=== PATIENT | female | born 1960 | race Two or more races ===

== ENCOUNTER 2019-02-17 19:52 | Emergency (ER) | payer OTHER ==
[~2019-02-17] VITALS: Ht 172.7 cm; Wt 74.8 kg
[2019-02-17 21:06] LABS: Basophils # (auto) 0.1 uL; Basophils % (auto) 0.9 % (0.0-2.0); Eosinophils # (auto) 0 uL; Eosinophils % (auto) 0.5 % (0.0-7.0); Hematocrit 42.1 % (36.0-46.0); Hemoglobin 14.7 g/dL (12.2-16.2); Lymphocytes # (auto) 2.3 uL; Lymphocytes % (auto) 29.9 % (10.0-50.0); Mean Corpuscular Hemoglobin 30.1 pg (28.0-32.0); Monocytes # (auto) 0.6 uL; Monocytes % (auto) 7.6 % (0.0-12.0); Neutrophils # (auto) 4.8 uL; Neutrophils % (auto) 61.1 % (37.0-80.0); Nucleated Red Blood Cells % 0.1 %; Platelet Count (auto) 330 10^3/uL (140-450); Red Cell Distribution Width 12.5 % (11.8-14.3); White Blood Cell 7.8 10^3/uL (4.4-10.8)
[2019-02-17 21:19] LABS: INR 0.98 (0.9-1.15); Partial Thromboplastin Time 25.6 sec (23.64-32.05)
[2019-02-17 21:22] LABS: Alanine Aminotransferase 34 U/L (13-56); Albumin 3.9 g/dL (3.4-5.0); Anion Gap 7 (5-15); Aspartate Aminotransferase 17 U/L (15-37); BUN/Creatinine Ratio 24.6; Blood Urea Nitrogen 16 mg/dL (7-18); Calcium 9.2 mg/dL (8.5-10.1); Carbon Dioxide 27 mmol/L (21-32); Chloride 107 mmol/L (98-107); GFR African American 120 mL/min; GFR Non-African American 99 mL/min; Glucose 116 mg/dL (74-106); Magnesium 2.2 mg/dL (1.6-2.6); Potassium 3.2 mmol/L (3.5-5.1); Sodium 141 mmol/L (136-145)
[2019-02-17 21:27] LABS: Alkaline Phosphatase 82 U/L (45-117); Bilirubin, Total 1.5 mg/dL (0.2-1.0); Total Protein 7.7 g/dL (6.4-8.2)
[2019-02-17] MEDS ORDERED: ONDANSETRON HCL 4 MG/2 ML VIAL IV ONE (21:30)
[2019-02-17] MEDS ORDERED: HYDROmorphone HCL 2 MG/ML VL IV ONE (21:30)
[2019-02-18] MEDS ORDERED: HYDROcodone-ACET 5/325MG TAB PO ONE (02:00)
[2019-02-18 02:06] VITALS: BP 117/72
== END 2019-02-18 02:20 | disposition home or self-care (01) ==
LOC: EDBD 19:52 → ER 19:52
DX: M25.552 Pain in left hip (principal)
CPT/HCPCS: 36415; 71045; 73502; 80053; 83735; 84484; 85025; 85610; 85730; 94761; 96374; 96375; 99284; J1170; J2405

== ENCOUNTER 2021-02-15 18:38 | Emergency (ER) | payer OTHER ==
[~2021-02-15] VITALS: Ht 162.6 cm; Wt 79.4 kg
[2021-02-15] MEDS ORDERED: ACETAMINOPHEN 325 MG TAB PO ONE (19:00)
[2021-02-15 19:03] LABS: Basophils # (auto) 0.2 10 ^3/uL (0-0.2); Basophils % (auto) 2.7 % (0.0-2.0); Eosinophils # (auto) 0.1 10 ^3/uL (0-0.8); Eosinophils % (auto) 1.9 % (0.0-7.0); Hematocrit 42.2 % (36.0-46.0); Hemoglobin 13.7 g/dL (12.2-16.2); Lymphocytes # (auto) 2.1 10 ^3/uL (0.4-5.4); Lymphocytes % (auto) 32.2 % (10.0-50.0); Mean Corpuscular Hemoglobin 28.8 pg (28.0-32.0); Mean Corpuscular Hgb Conc. 32.6 g/dL (32.0-36.0); Mean Corpuscular Volume 88.5 fL (80.0-100.0); Monocytes # (auto) 0.4 10 ^3/uL (0-1.3); Monocytes % (auto) 6.8 % (0.0-12.0); Neutrophils # (auto) 3.6 10 ^3/uL (1.6-8.6); Neutrophils % (auto) 56.4 % (37.0-80.0); Nucleated Red Blood Cells % 0.1 %; Red Blood Cells 4.77 10^6/uL (4.0-5.20); Red Cell Distribution Width 12.4 % (11.8-14.3); White Blood Cell 6.5 10^3/uL (4.4-10.8)
[2021-02-15 19:20] LABS: INR 0.99 (0.9-1.15); Partial Thromboplastin Time 24.1 sec (23.6-33.0)
[2021-02-15 19:21] LABS: Albumin 3.6 g/dL (3.4-5.0); Anion Gap 8 (5-15); Blood Urea Nitrogen 20 mg/dL (7-18); Calcium 9.5 mg/dL (8.5-10.1); Carbon Dioxide 27 mmol/L (21-32); Chloride 110 mmol/L (98-107); Glucose 157 mg/dL (74-106); Potassium 3.4 mmol/L (3.5-5.1); Sodium 145 mmol/L (136-145)
[2021-02-15 19:28] LABS: Alanine Aminotransferase 35 U/L (13-56); Alkaline Phosphatase 92 U/L (45-117); Aspartate Aminotransferase 16 U/L (15-37); Bilirubin, Total 1.2 mg/dL (0.2-1.0); GFR African American 107 mL/min; GFR Non-African American 89 mL/min; Total Protein 7.5 g/dL (6.4-8.2)
[2021-02-15 19:29] LABS: BUN/Creatinine Ratio 28.2
[2021-02-16 08:10] VITALS: BP 152/87
[2021-02-16] MEDS ORDERED: NITROGLYCERIN 0.4 MG SL TAB SL ONE (10:00)
== END 2021-02-16 07:08 | disposition short-term general hospital (02) ==
LOC: EDBD 18:38 → ER 18:40
DX: R07.2 Precordial pain (principal); R55 Syncope and collapse; I25.2 Old myocardial infarction; I25.10 Atherosclerotic heart disease of native coronary artery without angina pectoris; I10 Essential (primary) hypertension; E78.5 Hyperlipidemia, unspecified; Z20.822 Contact with and (suspected) exposure to COVID-19; Z86.73 Personal history of transient ischemic attack (TIA), and cerebral infarction without residual deficits; Z88.0 Allergy status to penicillin
CPT/HCPCS: 36415; 71045; 80053; 84484; 85025; 85610; 85730; 87426; 93005

== ENCOUNTER 2022-07-01 13:41 | Emergency (ER) | payer OTHER ==
[~2022-07-01] VITALS: Ht 167.6 cm; Wt 81.0 kg
[2022-07-01 15:24] LABS: Albumin 3.7 g/dL (3.4-5.0); Calcium 9.5 mg/dL (8.5-10.1); Potassium 3.8 mmol/L (3.5-5.1)
[2022-07-01 15:25] LABS: INR 0.97 (0.9-1.15); Partial Thromboplastin Time 25.8 sec (24.6-33.4)
[2022-07-01 15:26] LABS: BUN/Creatinine Ratio 22.2
[2022-07-01 15:27] LABS: Basophils # (auto) 0.1 10 ^3/uL (0-0.2); Basophils % (auto) 0.6 % (0.0-2.0); Eosinophils # (auto) 0.1 10 ^3/uL (0-0.8); Eosinophils % (auto) 0.8 % (0.0-7.0); Hematocrit 44.3 % (36.0-46.0); Hemoglobin 14.5 g/dL (12.2-16.2); Lymphocytes # (auto) 2.6 10 ^3/uL (0.4-5.4); Lymphocytes % (auto) 28.2 % (10.0-50.0); Mean Corpuscular Hemoglobin 28.4 pg (28.0-32.0); Mean Corpuscular Hgb Conc. 32.8 g/dL (32.0-36.0); Mean Corpuscular Volume 86.7 fL (80.0-100.0); Monocytes # (auto) 0.6 10 ^3/uL (0-1.3); Monocytes % (auto) 6.7 % (0.0-12.0); Neutrophils # (auto) 5.9 10 ^3/uL (1.6-8.6); Neutrophils % (auto) 63.7 % (37.0-80.0); Nucleated Red Blood Cells % 0.1 %; Red Blood Cells 5.11 10^6/uL (4.0-5.20); Red Cell Distribution Width 12.3 % (11.8-14.3); White Blood Cell 9.3 10^3/uL (4.4-10.8)
[2022-07-01 15:28] LABS: Bilirubin, Total 1.1 mg/dL (0.2-1.0); Total Protein 7.3 g/dL (6.4-8.2)
[2022-07-01] MEDS ORDERED: SUCCINYLCHOLINE CHLORIDE 20 MG/ML 10ML VIAL IV ONE (16:15)
[2022-07-01] MEDS ORDERED: HEPARIN SODIUM (PORCINE) 5000 UNITS/ML 1ML VIAL IV ONE (16:15)
[2022-07-01] MEDS ORDERED: LABETALOL HCL 5 MG/ML 4ML SYRINGE IV ONE (16:15)
[2022-07-01] MEDS ORDERED: ETOMIDATE (2MG/ML) 20ML VIAL IV ONE (16:15)
[2022-07-01 17:34] LABS: Urine Bacteria NONE SEEN /hpf (None Seen); Urine Blood Negative /uL (Negative); Urine Specific Gravity 1.007 (1.001-1.035); Urine WBC 2 /hpf (0 - 5)
[2022-07-01 19:50] VITALS: BP 126/75
[2022-07-01] MEDS ORDERED: ACETAMINOPHEN 325 MG TAB PO ONE (20:15)
== END 2022-07-01 20:49 | disposition short-term general hospital (02) ==
LOC: ER 13:41 → EDBD 13:41 → ER 20:49
DX: S09.90XA Unspecified injury of head, initial encounter (principal); I10 Essential (primary) hypertension; I63.9 Cerebral infarction, unspecified; I25.10 Atherosclerotic heart disease of native coronary artery without angina pectoris; E78.5 Hyperlipidemia, unspecified; Z86.73 Personal history of transient ischemic attack (TIA), and cerebral infarction without residual deficits; Z98.890 Other specified postprocedural states; Z88.0 Allergy status to penicillin; Z20.822 Contact with and (suspected) exposure to COVID-19; W18.39XA Other fall on same level, initial encounter; Y93.89 Activity, other specified; Y92.89 Other specified places as the place of occurrence of the external cause; Y99.8 Other external cause status
CPT/HCPCS: 36415; 70450; 71045; 72125; 72192; 80053; 81001; 83735; 83880; 84484; 85025; 85610; 85730; 87426; 96374; 96375; 99285; J1644; J3490; 93005